=== PATIENT | female | born 1975 | race African-American/Black ===

== ENCOUNTER → 2017-10-31 | Outpatient (CLI) | payer BC | LOC: OD 15:42 | PROVIDERS: ATTEND Otolaryngology | DX: J30.9 Allergic rhinitis, unspecified (principal) | CPT/HCPCS: 36415 ==

== ENCOUNTER → 2017-11-10 | Outpatient (CLI) | payer BC ==
--- NOTE | 2017-11-10 17:02 | RADIOLOGY REPORT (SQ) ---
EXAM DESCRIPTION: U/S THYROID/SFT TISS HD NECK COMPLETED DATE/TIME: 11/10/2017 4:41 pm REASON FOR STUDY: Z86.39 PERSONAL HISTORY OF OTHER ENDOCRINE, NUTRITIONAL AND METABOLIC DISEA Z86.39 PERSONAL HISTORY OF ENDO, NUTRITIONAL AND METABOLIC D COMPARISON: None. TECHNIQUE: Dynamic and static kan-scale images acquired of the thyroid gland. Selected additional c olor/power Doppler images recorded. All images stored to PACS. LIMITATIONS: Body habitus. FINDINGS: RIGHT LOBE: 2.5 x 0.7 x 0.5 cm. Heterogeneous echotexture. No cystic or solid masses. LEFT LOBE: 2.6 x 0.8 x 0.5 cm Heterogeneous echotexture. 1.1 x 0.5 x 0.5 hyperechoic solid nodule. ISTHMUS: 1 mm. No cystic or solid masses. OTHER: No other significant finding. IMPRESSION: Small gland. Solitary solid nodule left lobe. TECHNICAL DOCUMENTATION: JOB ID: [id number] [employer]- All Rights Reserved
== END ==
LOC: RAD 15:35
PROVIDERS: ATTEND Otolaryngology
DX: E04.1 Nontoxic single thyroid nodule (principal); Z86.39 Personal history of other endocrine, nutritional and metabolic disease
CPT/HCPCS: 76536